=== PATIENT | female | born 1940 | race Two or more races ===

== ENCOUNTER 2022-06-02 20:27 | Inpatient (IN) | payer MEDICARE, BC ==
[~2022-06-02] VITALS: Ht 165.1 cm; Wt 103.9 kg
--- NOTE | 2022-06-02 21:30 | NUR ---
ICU/CARTON FORMING MACHINE OPERATOR GOT REPORT FROM [facility] NURSE CAS.
--- NOTE | 2022-06-02 21:35 | NUR ---
ICU/INSTRUMENTATION TECH PT GOT BOLUS OF AMIO. THEN PT WAS STARTED ON AMIO 1MG FOR THE NEXT 6 HRS. AFTER PT TO HAVE 0.5MG FOR 18HRS. CHARGE NURSE MADE AWARE THAT PT IS COMING WITH AMIO DRIP.
[2022-06-02 22:45] VITALS: BP 159/82
[2022-06-02 23:00] VITALS: BP 150/87
--- NOTE | 2022-06-02 23:00 | NUR ---
ICU/DAIRY CATTLE FARMER PT CAME VIA [facility] AMBULANCE, PT TRANSFER TO BED PLACED ON MONITOR. PHOTOS TAKEN OF WOUNDS. CALL LIGHT WITHIN REACH. CALLED MD TO GET ORDERS.
[2022-06-02 23:15] VITALS: BP 153/79
[2022-06-02 23:30] VITALS: BP 148/87
[2022-06-02 23:45] VITALS: BP 150/75
[2022-06-03] VITALS (71 sets, daily range): BP systolic 129–164; BP diastolic 40–101
[2022-06-03] MEDS ORDERED: ENALAPRILAT DIHYD. (2.5MG/2ML) 1.25 MG/ML VIAL IV PRN
[2022-06-03] MEDS ORDERED: hydrALAZINE HCL IV 20 MG VIAL IV PRN ×2
--- NOTE | 2022-06-03 00:10 | NUR ---
ICU/WOOD ROOM HAND CALLED MD AND GOT ORDERS FOR ADMISSION.
[2022-06-03] MEDS ORDERED: AMIODARONE 150 MG/3 ML VIAL IV ONE (00:29)
[2022-06-03] MEDS: AMIODARONE 450 MG in IV D5W 241 ML IV PRN ×2 (00:34→11:41)
[2022-06-03] MEDS: HYDROCODONE/APAP 5/325MG TABLET PO PRN ×3 (02:40→22:31)
--- NOTE | 2022-06-03 02:45 | NUR ---
ICU/TANK STAVE ASSEMBLER PT COMPLAINED OF PAIN 10/10 TO BACK AND LEGS, MD GAVE ORDER FOR NORCO 5/325MG 1 TAB PO EVERY 6 HRS. THE 1 TAB OF NORCO WAS GIVEN AT THIS TIME. CALL LIGHT WITHIN REACH.
[2022-06-03] MEDS ORDERED: APIX5TAB PO (02:48)
[2022-06-03] MEDS ORDERED: ATEN25TA PO (02:50)
[2022-06-03] MEDS ORDERED: AMIO200T5 PO (02:51)
[2022-06-03] MEDS ORDERED: FAMO-131 PO (02:52)
[2022-06-03] MEDS ORDERED: OXYC-133 PO (02:53)
[2022-06-03] MEDS ORDERED: DULO30CA2 PO (02:54)
[2022-06-03] MEDS ORDERED: PRED20TA PO (02:55)
[2022-06-03] MEDS ORDERED: METO2.5T2 PO (02:57)
[2022-06-03] MEDS ORDERED: METO1TAB11 PO (02:59)
[2022-06-03] MEDS ORDERED: METO2.5T7 PO (03:02)
--- NOTE | 2022-06-03 03:05 | NUR ---
ICU/CARD FOLDER MD CONNER CALLED TO ASK IF HOME MEDS WERE RECIEVED, PT DOESN'T HAVE A LIST PT REMEMBERED SOME MEDS. HOWEVER MD DID GIVE VERBAL ORDER FOR SOME MEDS UNTIL PT CAME GET COMPLETE LIST OF MEDS.
--- NOTE | 2022-06-03 03:26 | NUR ---
ICU/INSTRUCTOR WEAVING ATTACHI CALLED TO GIVE MORE VERBAL ORDERS. PLACED ORDERS IN COMPUTER.
[2022-06-03 04:25] LABS: BASOPHILS % (AUTO) 0.3 % (0.0-2.0); EOSINOPHILS % (AUTO) 0.4 % (0.0-6.0); HEMATOCRIT 40 % (33-45); HEMOGLOBIN 12.8 g/dL (11.5-14.8); LYMPHOCYTES # (AUTO) 2.4 K/uL (0.8-4.8); LYMPHOCYTES % (AUTO) 22.8 % (20.0-44.0); MEAN CORPUSCULAR HGB CONC 32 g/dl (31.0-36.0); MEAN CORPUSCULAR VOLUME 96 fL (82-100); MONOCYTES # (AUTO) 0.8 K/uL (0.1-1.30); MONOCYTES % (AUTO) 7.2 % (2.0-12.0); NEUTROPHILS # (AUTO) 7.3 K/uL (1.8-8.9); NEUTROPHILS % (AUTO) 69.3 % (43.0-81.0); PLATELET COUNT (AUTO) 290 K/uL (150-450); RED BLOOD CELL COUNT(AUTO) 4.17 MIL/uL (4.0-5.2); WHITE BLOOD COUNT (AUTO) 10.5 K/uL (4.3-11.0)
[2022-06-03 04:40] LABS: CARBON DIOXIDE 33 mmol/L (21-32); CHLORIDE 97 mmol/L (98-107); CREATININE 1.3 mg/dL (0.6-1.3); GLUCOSE 106 mg/dL (74-106); PHOSPHORUS 4.8 mg/dL (2.5-4.9); POTASSIUM 3.5 mmol/L (3.5-5.1); SODIUM SERUM 137 mmol/L (136-145); UREA NITROGEN, BLOOD 23 mg/dL (7-18)
[2022-06-03 04:51] LABS: THYROID STIMULATING HORMONE 2.807 uIU/mL (0.358-3.74)
--- NOTE | 2022-06-03 05:00 | NUR ---
ICU/PRACTICING DERMATOLOGIST EKG WAS DONE AND PLACED IN THE CHART.
--- NOTE | 2022-06-03 05:30 | NUR ---
ICU/CROP DUSTER AM LABS WERE DONE
--- NOTE | 2022-06-03 06:00 | NUR ---
ICU/PENCILLER POSITIVE TROP 105, CHARGE NURSE TOOK CRITICAL LAB. PT CAME FROM [place] WITH POSITIVE TROP.
[2022-06-03] MEDS: LEVOTHYROXINE SODIUM 50 MCG TABLET PO SCH (06:07)
--- NOTE | 2022-06-03 07:00 | NUR ---
RN NOTES RECEIVED PT ON BED, A/Ox4, ON RA , O2 SAT WNL, ON TELE A.FIB, HR IN 100'S, ON AMIO DRIP AT 0.5 MG/MIN, IV SITE CDI, NO DISTRESS NOTED, SR UP x3, CALL LIGHT WITHIN EASY REACH, BED LOCKED AND IN LOWEST POSITION, CONTINUE TO MONITOR
[2022-06-03] MEDS: APIXABAN 5 MG TABLET PO SCH ×2 (08:14→21:06)
[2022-06-03] MEDS: DULOXETINE HCL 30 MG CAPSULE.DR PO SCH (08:14)
[2022-06-03] MEDS: FAMOTIDINE (20 MG) 20 MG TABLET PO SCH ×2 (08:14→21:05)
[2022-06-03] MEDS ORDERED: ATENOLOL 25 MG TABLET PO SCH (09:00)
[2022-06-03] MEDS ORDERED: FUROSEMIDE 20 MG TABLET PO SCH (09:00)
[2022-06-03] MEDS ORDERED: predniSONE 5 MG TABLET PO SCH (09:00)
[2022-06-03] MEDS: VALSARTAN 80 MG TABLET PO SCH (09:01)
--- NOTE | 2022-06-03 09:03 | NUR ---
WOUND CARE CONSULT: PT HAVING PROCEDURE AT THIS TIME. DR CUEVAS CALLED FOR DPM CONSULT. PT HAS BILATERAL FOOT WOUNDS, PRESENT ON ADMISSION. ADMISSION PHOTO INDICATES REDNESS/SCAB TO RT BUTTOCK. WILL SEE PT AT LATER TIME FOR FULL ASSESSMENT. DISCUSSED SKIN PROTECTION WITH NURSING STAFF. MD IN AGREEMENT WITH PLAN OF CARE.
--- NOTE | 2022-06-03 09:14 | NUR ---
WOUND CARE: PT SEEN FOR SKIN ASSESSMENT OF SACRAL AREA AND RT BUTTOCK. GLUTEAL CREASE HAS MOISTURE WITH REDNESS AND RT BUTTOCK HAS DRY SCAB WITHOUT ERYTHEMA, TENDERNESS OR DRAINAGE, PRESENT ON ADMISSION. PT USING PURE WICK SYSTEM FOR URINARY INCONTINENCE. ALL SKIN PROTECTION MEASURES IN PLACE. MD IN AGREEMENT WITH PLAN OF CARE.
[2022-06-03] MEDS ORDERED: Z GUARD REMEDY 4 OZ OINT TP PRN (09:30)
[2022-06-03 10:10] LABS: BILIRUBIN,DIRECT 0.2 mg/dL (0.0-0.2); BILIRUBIN,TOTAL 0.6 mg/dL (0.2-1.0); TOTAL PROTEIN, SERUM 5.8 g/dL (6.4-8.2)
--- NOTE | 2022-06-03 10:47 | NUR ---
APS REPORT #[id number] completed for possible self-neglect. Pt. reported to that she is wheelchair bound, and lives at home with her who is blind. Pt. reportedly has Home health services and automobile club information clerk but no caregiver.
[2022-06-03] MEDS: Z GUARD REMEDY 4 OZ OINT TP SCH (11:40)
[2022-06-03] MEDS ORDERED: MAGNESIUM HYDROXIDE 30 ML UDC PO PRN (12:00)
[2022-06-03] MEDS ORDERED: ACETAMINOPHEN 325 MG TABLET PO PRN (12:00)
[2022-06-03] MEDS: ONDANSETRON HCL/PF 4 MG/2 ML VIAL IV PRN (13:07)
--- NOTE | 2022-06-03 14:00 | NUR ---
RN NOTES PT ON AMIO AT 0.5 MG/MN, A.FIB ON TELE , CONTINUE TO MONITOR
[2022-06-03] MEDS: DOCUSATE SODIUM 100 MG CAPSULE PO SCH (16:32)
--- NOTE | 2022-06-03 18:15 | NUR ---
RN NOTES PT REMAINS ON AMIO DRIP AT 0.5 MG/MIN THIS TIME, A.FIB , NO SIGNIFICANT CHANGES NOTED, ON THIS SHIFT, WILL ENDORSE TO BUSINESS JOB TITLES NURSE FOR CONTINUITY OF CARE
[2022-06-03] MEDS ORDERED: LOSARTAN POTASSIUM 25 MG TABLET PO SCH (21:00)
[2022-06-04] VITALS (32 sets, daily range): BP systolic 91–159; BP diastolic 49–86
[2022-06-04] MEDS: AMIODARONE 450 MG in IV D5W 241 ML IV PRN (02:40)
[2022-06-04 03:52] LABS: BASOPHILS % (AUTO) 0.3 % (0.0-2.0); EOSINOPHILS % (AUTO) 0.6 % (0.0-6.0); HEMATOCRIT 39 % (33-45); HEMOGLOBIN 12.5 g/dL (11.5-14.8); LYMPHOCYTES % (AUTO) 24.8 % (20.0-44.0); MEAN CORPUSCULAR HGB CONC 33 g/dl (31.0-36.0); MEAN CORPUSCULAR VOLUME 95 fL (82-100); MONOCYTES # (AUTO) 0.5 K/uL (0.1-1.30); MONOCYTES % (AUTO) 6.1 % (2.0-12.0); NEUTROPHILS # (AUTO) 5.6 K/uL (1.8-8.9); NEUTROPHILS % (AUTO) 68.2 % (43.0-81.0); PLATELET COUNT (AUTO) 252 K/uL (150-450); RED BLOOD CELL COUNT(AUTO) 4.08 MIL/uL (4.0-5.2); WHITE BLOOD COUNT (AUTO) 8.1 K/uL (4.3-11.0)
[2022-06-04 04:14] LABS: ALANINE AMINOTRANSFERASE 19 U/L (12-78); ALBUMIN 2.7 g/dL (3.4-5.0); ALKALINE PHOSPHATASE 78 U/L (46-116); ASPARTATE AMINOTRANSFERASE 14 U/L (15-37); BILIRUBIN,TOTAL 0.9 mg/dL (0.2-1.0); CALCIUM, SERUM 8.5 mg/dL (8.5-10.1); CARBON DIOXIDE 36 mmol/L (21-32); CHLORIDE 97 mmol/L (98-107); CREATININE 1.2 mg/dL (0.6-1.3); GLUCOSE 99 mg/dL (74-106); PHOSPHORUS 4.6 mg/dL (2.5-4.9); SODIUM SERUM 136 mmol/L (136-145); TOTAL PROTEIN, SERUM 5.4 g/dL (6.4-8.2); UREA NITROGEN, BLOOD 16 mg/dL (7-18)
[2022-06-04] MEDS: HYDROCODONE/APAP 5/325MG TABLET PO PRN ×4 (04:33→22:24)
[2022-06-04] MEDS ORDERED: DEXAMETHASONE SOD PHOSPHATE 10 MG/ML VIAL ONE (06:53)
--- NOTE | 2022-06-04 07:00 | NUR ---
RN NOTES RECEIVED PT ON BED, A/Ox4, ON RA , O2 SAT WNL, ON TELE A.FIB, HR IN 70'S , ON AMIO DRIP AT 0.5 MG/MIN, IV SITE CDI, NO DISTRESS NOTED, SR UP x3, CALL LIGHT WITHIN EASY REACH, BED LOCKED AND IN LOWEST POSITION, CONTINUE TO MONITOR
[2022-06-04] MEDS: VALSARTAN 80 MG TABLET PO SCH (09:00)
--- NOTE | 2022-06-04 09:00 | NUR ---
RN NOTES CARDIOVERSION DONE AT THE BEDSIDE BY DR BRYANT , PT TOLERATED WELL, CONTINUE TO MONITOR
[2022-06-04] MEDS: APIXABAN 5 MG TABLET PO SCH ×2 (09:08→22:07)
[2022-06-04] MEDS: predniSONE 20 MG TABLET PO SCH (09:08)
[2022-06-04] MEDS: DOCUSATE SODIUM 100 MG CAPSULE PO SCH ×2 (09:08→16:36)
[2022-06-04] MEDS: FAMOTIDINE (20 MG) 20 MG TABLET PO SCH ×2 (09:09→21:57)
[2022-06-04] MEDS: DULOXETINE HCL 30 MG CAPSULE.DR PO SCH (09:09)
[2022-06-04] MEDS: LEVOTHYROXINE SODIUM 50 MCG TABLET PO SCH (09:18)
[2022-06-04] MEDS: Z GUARD REMEDY 4 OZ OINT TP SCH (09:19)
[2022-06-04] MEDS: ONDANSETRON HCL/PF 4 MG/2 ML VIAL IV PRN ×2 (09:33→13:28)
[2022-06-04] MEDS ORDERED: LOSA100T31 PO (10:11)
[2022-06-04] MEDS ORDERED: LEVO75TA7 PO (10:11)
[2022-06-04] MEDS ORDERED: PRAM0.258 PO (10:11)
[2022-06-04] MEDS ORDERED: NYST5ORA PO (10:11)
[2022-06-04] MEDS ORDERED: MANUKA HONEY TP (10:11)
[2022-06-04] MEDS ORDERED: METO100T14 PO (10:11)
[2022-06-04] MEDS ORDERED: CALC1TAB3 PO (10:11)
[2022-06-04] MEDS ORDERED: BIOT10006 PO (10:11)
[2022-06-04] MEDS ORDERED: MAGN400T26 PO (10:11)
[2022-06-04] MEDS ORDERED: CRAN250C PO (10:11)
[2022-06-04] MEDS ORDERED: CARB15DR EACHEYE (10:11)
[2022-06-04] MEDS ORDERED: DOXY100T2 PO (10:11)
[2022-06-04] MEDS ORDERED: POTA20TA83 PO (10:11)
[2022-06-04] MEDS: SOTALOL HCL 80 MG TABLET PO SCH ×2 (10:52→21:53)
--- NOTE | 2022-06-04 11:00 | NUR ---
RN NOTES PT TRANSFERRED TO TELE BED VIA ACLS PROTOCAL IN STABLE CONDITION, WITH ALL HER BELONGINGS ,SR ON TELE MONITOR . REPORT GIVEN TO LINDA GORDON FOR CONTINUITY OF CARE
--- NOTE | 2022-06-04 11:36 | NUR ---
telesales consultant note received patient from icu, alert oriented ,on ra ,no sob noted at this time pure week in place , on tele monitor sr hr 66 , consent for cta signed , called to dr david that procedure will be done tomorrow , all needs attended, will cont to monitor
--- NOTE | 2022-06-04 12:48 | NUR ---
telecommunication lines repairer note new hl on rt ac inserted with good blood return
--- NOTE | 2022-06-04 13:33 | NUR ---
telemarketing fundraiser note feels nausea Zofran 4 mg ivp given as ordered
[2022-06-04] MEDS ORDERED: IOHEXOL-350 100 ML VIAL IV ONE (13:55)
[2022-06-04] MEDS ORDERED: CT SWABBABLE VALVE TRANS SET 1 EA INFUS.SET MC ONE (13:55)
[2022-06-04] MEDS ORDERED: IV NS 0.9% 250 ML IV ONE (13:55)
--- NOTE | 2022-06-04 14:00 | NUR ---
television service engineer note taken to cta
--- NOTE | 2022-06-04 14:23 | NUR ---
RN NOTES CTCA PROCEDURE WELL TOLERATED BY THE PT. PT IS AAOX4, NOT IN RESPIRATORY DISTRESS, V/S STABLE, KEPT RESTED AND COMFORTABLE. REPORT GIVEN TO EVAN MCKEON FOR BERTHA.
[2022-06-04] MEDS ORDERED: NITROGLYCERIN 0.4 MG/TAB BOTTLE SL ONE (14:30)
[2022-06-04] MEDS ORDERED: METOPROLOL TARTRATE INJ 5 MG/5 ML AMPUL IVP PRN (14:30)
[2022-06-04] MEDS: PROSOURCE / PROSTAT (PYXIS) 30 ML UDC GT SCH (16:36)
--- NOTE | 2022-06-04 17:33 | NUR ---
clerk telegraph service note Anthony po given as ordered for back pain bp 139/73 saturation 98% also reported us arterial duplex studu to dr quinones [facility] legs
--- NOTE | 2022-06-04 18:22 | NUR ---
telecommunication operator note per dr varela placed order for dr hughes consult
--- NOTE | 2022-06-04 18:41 | NUR ---
OIL HEATER INSTALLER NOTE PATIENT IN BED , ALL NEEDS ATTENDED, ABLE TO EAT DINNER SELF WITH PUREE WICK WITH YELLOW COLOR URINE NOTED, ON TELE MONITOR SR 60 SB 58 , NO SOB NOTED ,ON RA . RT AC AND RT FA HL INTACT AND FLUSHED WELL , CALL LIGHT WITHIN REACH , SAFETY MEASURE IMPLEMENTED WILL CONT TO MONITOR
--- NOTE | 2022-06-04 19:30 | NUR ---
RN NOTE RECEIVED PT IN BED, ALERT, AWAKE, ORIENTED X4, VERBALLY RESPONSIVE. PT ON ROOM AIR, WELL TOLERATED. RESPIRATION EVEN AND UNLABORED, NO ACUTE RESP DISTRESS NOTED. PT DENIES PAIN OR DISCOMFORT AT THIS TIME. PT ATTACHED TO EXTERNAL PROJECT DEVELOPMENT ENGINEER READING SR. IV SITE CLEAN, DRY AND PATENT, ON SL. SAFETY PRECAUTION IMPLEMENTED. WILL CONT POC
[2022-06-05] VITALS: BP 132/70
[2022-06-05] MEDS: HYDROCODONE/APAP 5/325MG TABLET PO PRN ×5 (02:45→21:45)
[2022-06-05 04:00] VITALS: BP 142/73
[2022-06-05 06:52] LABS: BASOPHILS % (AUTO) 0.1 % (0.0-2.0); HEMATOCRIT 35 % (33-45); HEMOGLOBIN 11.9 g/dL (11.5-14.8); LYMPHOCYTES # (AUTO) 0.4 K/uL (0.8-4.8); LYMPHOCYTES % (AUTO) 5.6 % (20.0-44.0); MEAN CORPUSCULAR HGB CONC 34 g/dl (31.0-36.0); MEAN CORPUSCULAR VOLUME 93 fL (82-100); MONOCYTES # (AUTO) 0.3 K/uL (0.1-1.30); MONOCYTES % (AUTO) 4.4 % (2.0-12.0); NEUTROPHILS # (AUTO) 6.9 K/uL (1.8-8.9); NEUTROPHILS % (AUTO) 89.9 % (43.0-81.0); PLATELET COUNT (AUTO) 218 K/uL (150-450); RED BLOOD CELL COUNT(AUTO) 3.77 MIL/uL (4.0-5.2); WHITE BLOOD COUNT (AUTO) 7.7 K/uL (4.3-11.0)
--- NOTE | 2022-06-05 07:00 | NUR ---
RN NOTE RECEIVED PATIENT IN BED RESTING ALERT ORIENTED X4,VERBALLY RESPONSIVE, ON ROOM AIR O2:96% IV SITE IS ON RIGHT FOREARM,AND RIGHT AC INTACT PATENT,INCONTINENT BLADDER, PURE-WICK IN PLACE, SAFETY MEASURE IMPLEMENT BED IN LOW POSITION AND LOCKED,HEAD OF THE BED ELEVATED,CALL LIGHT WITHIN REACH CONTINUE TO MONITOR
--- NOTE | 2022-06-05 07:00 | NUR ---
RN NOTE PT REMAINS IN STABLE CONDITION. ALL NEEDS ATTENDED. NO SIGNIFICANT CHANGES NOTED. WILL ENDORSE TO AM SHIFT. KEPT PT CLEAN AND DRY AT ALL TIMES. WILL ENDORSE TO AM SHIFT FOR BERTHA
[2022-06-05] MEDS: LEVOTHYROXINE SODIUM 50 MCG TABLET PO SCH (07:27)
[2022-06-05 08:00] VITALS: BP 145/86
[2022-06-05 08:17] LABS: CARBON DIOXIDE 28 mmol/L (21-32); CHLORIDE 97 mmol/L (98-107); GLUCOSE 108 mg/dL (74-106); POTASSIUM 3.8 mmol/L (3.5-5.1); SODIUM SERUM 134 mmol/L (136-145)
[2022-06-05 08:18] LABS: CALCIUM, SERUM 8.5 mg/dL (8.5-10.1); CREATININE 1.1 mg/dL (0.6-1.3); MAGNESIUM 2.2 mg/dL (1.8-2.4); PHOSPHORUS 4.8 mg/dL (2.5-4.9); UREA NITROGEN, BLOOD 20 mg/dL (7-18)
[2022-06-05] MEDS: DOCUSATE SODIUM 100 MG CAPSULE PO SCH ×2 (08:38→16:19)
[2022-06-05] MEDS: DULOXETINE HCL 30 MG CAPSULE.DR PO SCH (08:38)
[2022-06-05] MEDS: VALSARTAN 80 MG TABLET PO SCH (08:39)
[2022-06-05] MEDS: FAMOTIDINE (20 MG) 20 MG TABLET PO SCH ×2 (08:40→21:45)
[2022-06-05] MEDS: predniSONE 20 MG TABLET PO SCH (08:40)
[2022-06-05] MEDS: SOTALOL HCL 80 MG TABLET PO SCH ×2 (08:40→21:00)
[2022-06-05] MEDS: APIXABAN 5 MG TABLET PO SCH ×2 (08:42→21:44)
[2022-06-05] MEDS: Z GUARD REMEDY 4 OZ OINT TP SCH (08:46)
[2022-06-05] MEDS: PROSOURCE / PROSTAT (PYXIS) 30 ML UDC GT SCH ×2 (08:49→16:19)
[2022-06-05 12:00] VITALS: BP 147/64
[2022-06-05 16:00] VITALS: BP 133/73
--- NOTE | 2022-06-05 18:57 | NUR ---
RN NOTE PATIENT REMAINS ALERT ORIENTED X4 VERBALLY RESPONSIVE ON ROOM AIR NO SOB NOT ACUTE DISTRESS NOTED ALL DUE MEDS GIVEN MD ORDERED,KEPT CLEAN AND DRY ALL THE TIME,KEPT COMFORTABLE,KEPT HEAD OF THE ELEVATED ALL THE TIME,ENDORSE NEXT COMING SHIFT FOR CONTINUATION OF CARE.
--- NOTE | 2022-06-05 19:30 | NUR ---
RN NOTE RECEIVED PT IN BED, ALERT, AWAKE, ORIENTED X4, VERBALLY RESPONSIVE. PT ON ROOM AIR, WELL TOLERATED. RESPIRATION EVEN AND UNLABORED, NO ACUTE RESP DISTRESS NOTED. PT DENIES PAIN OR DISCOMFORT AT THIS TIME. PT ATTACHED TO EXTERNAL CORRECTIONAL FACILITY PSYCHIATRIST READING SB HR58. IV SITE ON RFA AND RAC CLEAN, DRY AND PATENT, FLUSHES WELL, ON SL. SAFETY PRECAUTION IMPLEMENTED. WILL CONT POC
[2022-06-05 20:00] VITALS: BP 131/78
[2022-06-05] MEDS: GABAPENTIN 300 MG CAPSULE PO SCH (21:45)
[2022-06-06] VITALS: BP 132/81
[2022-06-06 04:00] VITALS: BP 133/72
[2022-06-06] MEDS: HYDROCODONE/APAP 5/325MG TABLET PO PRN ×4 (05:09→21:53)
[2022-06-06 05:50] LABS: BASOPHILS % (AUTO) 0.1 % (0.0-2.0); EOSINOPHILS % (AUTO) 0.1 % (0.0-6.0); HEMATOCRIT 35 % (33-45); HEMOGLOBIN 11.7 g/dL (11.5-14.8); LYMPHOCYTES # (AUTO) 1.2 K/uL (0.8-4.8); LYMPHOCYTES % (AUTO) 14.7 % (20.0-44.0); MEAN CORPUSCULAR HGB CONC 34 g/dl (31.0-36.0); MEAN CORPUSCULAR VOLUME 94 fL (82-100); MONOCYTES # (AUTO) 0.5 K/uL (0.1-1.30); MONOCYTES % (AUTO) 6.5 % (2.0-12.0); NEUTROPHILS # (AUTO) 6.5 K/uL (1.8-8.9); NEUTROPHILS % (AUTO) 78.6 % (43.0-81.0); PLATELET COUNT (AUTO) 229 K/uL (150-450); RED BLOOD CELL COUNT(AUTO) 3.72 MIL/uL (4.0-5.2); WHITE BLOOD COUNT (AUTO) 8.2 K/uL (4.3-11.0)
[2022-06-06] MEDS: LEVOTHYROXINE SODIUM 50 MCG TABLET PO SCH (06:10)
[2022-06-06 06:24] LABS: CALCIUM, SERUM 8.6 mg/dL (8.5-10.1); CARBON DIOXIDE 33 mmol/L (21-32); CHLORIDE 97 mmol/L (98-107); CREATININE 1.3 mg/dL (0.6-1.3); GLUCOSE 96 mg/dL (74-106); MAGNESIUM 2.3 mg/dL (1.8-2.4); PHOSPHORUS 4.1 mg/dL (2.5-4.9); POTASSIUM 3.2 mmol/L (3.5-5.1); SODIUM SERUM 133 mmol/L (136-145); UREA NITROGEN, BLOOD 27 mg/dL (7-18)
--- NOTE | 2022-06-06 06:43 | NUR ---
RN NOTE PT REMAINS IN STABLE CONDITION. VSS. REMAINS ON ROOM AIR, WELL SEAN. EXTERNAL FIELD ARTILLERY BASIC READS SB-SR THROUGHOUT THE SHIFT. ALL NEEDS ATTENDED. NO SIGNIFICANT CHANGES NOTED. KEPT PT CLEAN AND DRY AT ALL TIMES. WILL ENDORSE TO AM SHIFT FOR BERTHA
--- NOTE | 2022-06-06 07:30 | NUR ---
DBAS AM NOTE RECEIVED PT IN BED, ALERT, AWAKE, ORIENTED X4, ABLE TO EXPRESS NEEDS, ON ROOM AIR, O2 SAT 97%. NO SOB, RESPIRATION EVEN AND UNLABORED,SB HR 48 - 51 ON MONITOR. PT DENIES PAIN OR DISCOMFORT AT THIS TIME. IV SITE ON RFA AND RAC BOTH FLUSHES WELL AND BOTH SITES CLEAR. SEE NURSING FLOWSHEET FOR SKIN ISSUES. INDEPENDENT OF BED MOBILITY. SAFETY PRECAUTION IMPLEMENTED. BED LOW LOCKED. SAFETY MEASURES IN PLACE. POC DISCUSSED, VERBALIZED UNDERSTANDING. WILL CONT TP MONITOR.
[2022-06-06 08:00] VITALS: BP 116/65
[2022-06-06] MEDS: PROSOURCE / PROSTAT (PYXIS) 30 ML UDC GT SCH ×2 (08:32→16:05)
[2022-06-06] MEDS: FAMOTIDINE (20 MG) 20 MG TABLET PO SCH ×2 (08:35→21:54)
[2022-06-06] MEDS: GABAPENTIN 300 MG CAPSULE PO SCH ×3 (08:35→16:05)
[2022-06-06] MEDS: DULOXETINE HCL 30 MG CAPSULE.DR PO SCH (08:35)
[2022-06-06] MEDS: predniSONE 20 MG TABLET PO SCH (08:35)
[2022-06-06] MEDS: DOCUSATE SODIUM 100 MG CAPSULE PO SCH ×2 (08:35→16:05)
[2022-06-06] MEDS: SOTALOL HCL 80 MG TABLET PO SCH ×2 (08:36→21:00)
[2022-06-06] MEDS: VALSARTAN 80 MG TABLET PO SCH (08:37)
[2022-06-06] MEDS: APIXABAN 5 MG TABLET PO SCH ×2 (08:38→21:56)
[2022-06-06] MEDS: Z GUARD REMEDY 4 OZ OINT TP SCH (08:51)
--- NOTE | 2022-06-06 09:30 | NUR ---
RN NOTES DUE MEDS GIVEN
[2022-06-06] MEDS ORDERED: POTASSIUM CHLORIDE 20 MEQ TAB.PRT.SR PO SCH (10:00)
[2022-06-06 12:00] VITALS: BP 123/68
--- NOTE | 2022-06-06 13:12 | NUR ---
RN NOTES REPORT GIVEN TO XAVIER RIVERA FOR BERTHA
--- NOTE | 2022-06-06 13:20 | NUR ---
RECEIVED REPORT FROM MARIAH GORDON FOR BERTHA.
[2022-06-06] MEDS ORDERED: GABA300C PO (14:48)
[2022-06-06] MEDS ORDERED: APIX5TAB PO (14:48)
[2022-06-06] MEDS ORDERED: Z Guard Remedy TP ×2 (14:48)
[2022-06-06] MEDS ORDERED: DOCU100C36 PO (14:48)
[2022-06-06] MEDS ORDERED: LEVO50TA PO (14:48)
[2022-06-06] MEDS ORDERED: MAGN400O6 PO (14:48)
[2022-06-06] MEDS ORDERED: ACET325T53 PO (14:48)
[2022-06-06] MEDS ORDERED: DULO30CA2 PO (14:48)
[2022-06-06] MEDS ORDERED: Prosource GT (14:48)
[2022-06-06] MEDS ORDERED: PRED20TA PO (14:48)
[2022-06-06] MEDS ORDERED: FAMO20TA80 PO (14:48)
[2022-06-06] MEDS ORDERED: Hydrocodone/Apap 5/325MG PO (14:48)
[2022-06-06] MEDS ORDERED: ONDA4VIA23 PO (14:48)
[2022-06-06] MEDS ORDERED: SOTA80TA6 PO (14:48)
[2022-06-06] MEDS ORDERED: VALS80TA31 PO (14:48)
[2022-06-06 16:00] VITALS: BP 131/68
--- NOTE | 2022-06-06 17:56 | NUR ---
PATIENT REFUSED TO PUT OPTIFOAM ON BILATERAL HEELS, DRY DRESSING AND KERLIX WAS PLACED.
--- NOTE | 2022-06-06 18:07 | NUR ---
CLINICAL OFFICE TECHNICIAN CLOSING NOTE RECEIVED PT IN BED, ALERT, AWAKE, ORIENTED X4, ABLE TO EXPRESS NEEDS, ON ROOM AIR, O2 SAT 97%. NO SOB, RESPIRATION EVEN AND UNLABORED,SB HR 56-57, PT DENIES PAIN OR DISCOMFORT AT THIS TIME. NO C/O OF DIZZINESS OR CHEST PAIN. IV SITE ON RFA AND RAC BOTH PATENT AND INTACT AND FLUSHES WELL. INDEPENDENT OF BED MOBILITY. PATIENT NOTED WITH PUREWICK INTACT, WITH 500ML CLEAR YELLOW URINE OUTPUT. SAFETY PRECAUTION IMPLEMENTED. BED LOW LOCKED. SAFETY MEASURES IN PLACE. CALL LIGHT WITHIN REACH. WILL ENDORSE TO NIGHT NURSE FOR BERTHA.
--- NOTE | 2022-06-06 19:35 | NUR ---
HONEST JOHN ROCKET CREW MEMBER OPENING NOTE RECEIVED PATIENT IN BED: AWAKE, ALERT AND ORIENTED X 4. VERBALLY RESPONSIVE. ON ROOM AIR; TOLERATING WELL. BREATHING EVEN AND NONLABORED. DENIES ANY PAIN OR DISCOMFORT AT THIS TIME. ON EXTERNAL CARDIAC MONITORING WITH READING OF SB HR-56 BPM. WITH IV ACCESS ON RFA 20g AND RAC 20g; BOTH PATENT, INTACT AND SALINE LOCKED. ABLE TO MAKE NEEDS KNOWN. SAFETY PRECAUTIONS IMPLEMENTED: CALL LIGHT AND TABLE WITHIN REACH, SIDE RAILS UP X 2, BED IN LOWEST LOCKED POSITION. WILL CONTINUE PLAN OF CARE.
[2022-06-06 20:00] VITALS: BP 139/71
--- NOTE | 2022-06-06 21:59 | NUR ---
RN Note Sotalol HCl 80 mg held; patient's hr-49 bpm. Will continue to monitor.
[2022-06-07] VITALS: BP 133/67
[2022-06-07] MEDS: HYDROCODONE/APAP 5/325MG TABLET PO PRN ×3 (02:23→14:30)
[2022-06-07 04:00] VITALS: BP 135/71
[2022-06-07] MEDS: LEVOTHYROXINE SODIUM 50 MCG TABLET PO SCH (07:10)
--- NOTE | 2022-06-07 07:30 | NUR ---
INFANTRY UNIT LEADER AM NOTE RECEIVED PT IN BED, ALERT, AWAKE, ORIENTED X4, ABLE TO EXPRESS NEEDS, ON ROOM AIR, O2 SAT 99%. NO SOB, RESPIRATION EVEN AND UNLABORED,SB HR 58 ON MONITOR. PT DENIES PAIN OR DISCOMFORT AT THIS TIME. IV SITE ON RFA AND RAC BOTH FLUSHES WELL AND BOTH SITES CLEAR. SEE NURSING FLOWSHEET FOR SKIN ISSUES. INDEPENDENT OF BED MOBILITY. SAFETY PRECAUTION IMPLEMENTED. BED LOW LOCKED. SAFETY MEASURES IN PLACE. POC DISCUSSED, VERBALIZED UNDERSTANDING. WILL CONT TP MONITOR.
[2022-06-07 08:00] VITALS: BP 160/75
[2022-06-07] MEDS: PROSOURCE / PROSTAT (PYXIS) 30 ML UDC GT SCH (08:44)
[2022-06-07] MEDS: predniSONE 20 MG TABLET PO SCH (08:44)
[2022-06-07] MEDS: GABAPENTIN 300 MG CAPSULE PO SCH ×2 (08:46→12:09)
[2022-06-07] MEDS: SOTALOL HCL 80 MG TABLET PO SCH (08:46)
[2022-06-07] MEDS: VALSARTAN 80 MG TABLET PO SCH (08:46)
[2022-06-07] MEDS: DOCUSATE SODIUM 100 MG CAPSULE PO SCH (08:46)
[2022-06-07] MEDS: DULOXETINE HCL 30 MG CAPSULE.DR PO SCH (08:47)
[2022-06-07] MEDS: APIXABAN 5 MG TABLET PO SCH (08:47)
[2022-06-07] MEDS: FAMOTIDINE (20 MG) 20 MG TABLET PO SCH (08:47)
[2022-06-07] MEDS: Z GUARD REMEDY 4 OZ OINT TP SCH (08:48)
--- NOTE | 2022-06-07 09:30 | NUR ---
RN NOTES DUE MEDS GIVEN
[2022-06-07 12:00] VITALS: BP 131/56
[2022-06-07 13:00] VITALS: BP 160/75
--- NOTE | 2022-06-07 14:15 | NUR ---
RN NOTES REPORT GIVEN TO [facility] STAFF AMBULANCE STEM FRAZER AT 1500
--- NOTE | 2022-06-07 15:40 | NUR ---
RN NOTES PATIENT DISCHARGED TO [facility] PER MD IN STABLE CONDITION. PROVIDED DC INSTRUCTIONS, HEALTH TEACHINGS AND MED RECON LIST. PATIENT TO FOLLOW UP WITH PCP IN 1 WEEK OR PER FACILITY PROTOCOL AND WILL MAKE OWN APPOINTMENT. IV ACCESS TO RT AC AND RT FOREARM REMOVED, BOTH CATHETER TIP COMPLETE, APPLIED PRESSURE AND DRESSING TO SITE. NO BLEEDING. BELONGINGS CHECKED AND RETURNED. ALL PAPERWORKS SIGNED. WOUND DRESSINGS INTACT. PATIENT REFUSED PHOTOS OF SKIN ISSUES DUE TO NEUROPATHY COMPLAINS. PICKED UP BY 3 AMBULANCE CREW PERSONNEL TO TRANSPORT TO FACILITY. REPORT GIVEN GLORY AT FACILITY EARLIER.
== END 2022-06-07 15:40 | DRG 280 ==
LOC: ICU 22:29 → TELE1 06-04 10:59
PROVIDERS: ADMIT Internal Medicine; ATTEND Internal Medicine
PROC: 5A2204Z Restoration of Cardiac Rhythm, Single (ICD-10-PCS; principal; 2022-06-04)
DX: I48.91 Unspecified atrial fibrillation (principal); I21.4 Non-ST elevation (NSTEMI) myocardial infarction; I50.33 Acute on chronic diastolic (congestive) heart failure; N17.0 Acute kidney failure with tubular necrosis; J98.11 Atelectasis; L03.115 Cellulitis of right lower limb; L03.116 Cellulitis of left lower limb; I11.0 Hypertensive heart disease with heart failure; Z20.822 Contact with and (suspected) exposure to COVID-19; M35.3 Polymyalgia rheumatica; K21.9 Gastro-esophageal reflux disease without esophagitis; E78.00 Pure hypercholesterolemia, unspecified; E03.9 Hypothyroidism, unspecified; F32.A Depression, unspecified; Z98.84 Bariatric surgery status; Z98.1 Arthrodesis status; Z79.01 Long term (current) use of anticoagulants; Z79.899 Other long term (current) drug therapy; E78.5 Hyperlipidemia, unspecified; S90.811A Abrasion, right foot, initial encounter; X58.XXXA Exposure to other specified factors, initial encounter; Y92.9 Unspecified place or not applicable; I70.223 Atherosclerosis of native arteries of extremities with rest pain, bilateral legs
CPT/HCPCS: 36415; 71045-TC; 75574; 80048-TC; 80053-TC; 80076-TC; 82962-TC; 83605-TC; 83735-TC; 83880; 84100-TC; 84443-TC; 84484-TC; 85025-TC; 87040-TC; 87081-TC; 93307-TC; 97112-TC; 97116-TC; 97530-TC; A4223; A4624; A6253; A6403; G0378; J0282; J1100; J2405; J2704; J3490; J7030; J7050; J7060; J7512; Q9967

== ENCOUNTER 2022-07-23 04:21 | Inpatient (IN) | payer MEDICARE, BC ==
[~2022-07-23] VITALS: Ht 170.2 cm; Wt 92.1 kg
[~2022-07-23 04:21] MED LIST: ACET325T53 PO; APIX5TAB PO; BIOT10006 PO; CALC1TAB3 PO; CARB15DR EACHEYE; CRAN250C PO; DOCU100C36 PO; DULO30CA2 PO; FAMO-131 PO; FAMO20TA80 PO; GABA300C PO; Hydrocodone/Apap 5/325MG PO; LEVO50TA PO; LEVO75TA7 PO; MAGN400O6 PO; MAGN400T26 PO; METO2.5T2 PO; NYST5ORA PO; ONDA4VIA23 PO; PRAM0.258 PO; PRED20TA PO; Prosource GT; SOTA80TA6 PO; VALS80TA31 PO; Z Guard Remedy TP
[2022-07-23] MEDS ORDERED: IV NS 0.9% 1,000 ML IV ONE (05:00)
--- NOTE | 2022-07-23 05:00 | NUR ---
Pt is noted alert, responsive as she was brought in from home C/O Generalized weakness and S/P slipped abd Fall from chair. Pt care continue with MD at bedside.
--- NOTE | 2022-07-23 05:15 | NUR ---
Urine sent to Lab. Pt care continue.
[2022-07-23 05:22] LABS: BASOPHILS # (AUTO) 0.1 K/uL (0.0-0.2); BASOPHILS % (AUTO) 0.5 % (0.0-2.0); EOSINOPHILS % (AUTO) 0.6 % (0.0-6.0); HEMATOCRIT 36 % (33-45); HEMOGLOBIN 11.4 g/dL (11.5-14.8); LYMPHOCYTES % (AUTO) 8.7 % (20.0-44.0); MEAN CORPUSCULAR HGB CONC 32 g/dl (31.0-36.0); MEAN CORPUSCULAR VOLUME 97 fL (82-100); MONOCYTES # (AUTO) 0.5 K/uL (0.1-1.30); MONOCYTES % (AUTO) 4.2 % (2.0-12.0); PLATELET COUNT (AUTO) 279 K/uL (150-450); RED BLOOD CELL COUNT(AUTO) 3.74 MIL/uL (4.0-5.2); WHITE BLOOD COUNT (AUTO) 11.6 K/uL (4.3-11.0)
--- NOTE | 2022-07-23 05:22 | NUR ---
LINE HAUL OWNER OPERATOR AT PT'S BEDSIDE
[2022-07-23 05:32] LABS: CALCIUM, SERUM 9.7 mg/dL (8.5-10.1); CARBON DIOXIDE 30 mmol/L (21-32); CHLORIDE 104 mmol/L (98-107); CREATININE 1.6 mg/dL (0.6-1.3); GLUCOSE 111 mg/dL (74-106); POTASSIUM 3.8 mmol/L (3.5-5.1); SODIUM SERUM 142 mmol/L (136-145); UREA NITROGEN, BLOOD 35 mg/dL (7-18)
[2022-07-23 05:42] LABS: MAGNESIUM 2.6 mg/dL (1.8-2.4)
--- NOTE | 2022-07-23 05:45 | NUR ---
COVID SWAB COLLECTED AND SENT TO LAB.
--- NOTE | 2022-07-23 05:45 | NUR ---
TROPONIN 292 REPORTED BY MIN BELLO. NOTIFIED. REPEAT EKG ORDERED.
[2022-07-23 06:29] LABS: BILIRUBIN,URINE NEGATIVE (NEGATIVE); COLOR,URINE YELLOW (YELLOW); LEUKOCYTE ESTERASE ,URINE NEGATIVE (NEGATIVE); NITRITE, URINE NEGATIVE (NEGATIVE); PROTEIN,URINE NEGATIVE (NEGATIVE); UGLUCOSE NEGATIVE (NEGATIVE); UROBILINOGEN,URINE 0.2 EU/dL (0.2)
[2022-07-23] MEDS ORDERED: VANCOMYCIN 1 GM in IV D5W 250 ML IV ONE (06:30)
[2022-07-23] MEDS ORDERED: PIPERACILLIN /TAZOBACTAM 3.375 G in IV D5W 50 ML IV ONE (06:30)
[2022-07-23] MEDS ORDERED: PIPERACILLIN /TAZOBACTAM 3.375 G VIAL IV ONE (06:41)
[2022-07-23] MEDS ORDERED: VANCOMYCIN 1 GM VIAL ONE (06:59)
--- NOTE | 2022-07-23 07:19 | NUR ---
Pt care continue asreport is given to the AM receciving nurse.
--- NOTE | 2022-07-23 07:26 | NUR ---
[facility] CALLED MANAGER RESPIRATORY CARE PAGED.
--- NOTE | 2022-07-23 07:30 | NUR ---
Patient in bed, sleeping. No signs of distress or discomfort. All safety precautions taken, will continue to monitor.
[2022-07-23 08:13] LABS: BILIRUBIN,DIRECT 0.2 mg/dL (0.0-0.2); BILIRUBIN,TOTAL 0.8 mg/dL (0.2-1.0)
[2022-07-23] MEDS ORDERED: MAGNESIUM HYDROXIDE 30 ML UDC PO PRN (10:00)
[2022-07-23] MEDS ORDERED: MAG HYDROX/AL HYDROX/SIMETH 30 ML UDC PO PRN (10:00)
[2022-07-23] MEDS ORDERED: ONDANSETRON HCL/PF 4 MG/2 ML VIAL IVP PRN (10:00)
[2022-07-23] MEDS ORDERED: Z GUARD REMEDY 4 OZ OINT TP PRN (10:00)
--- NOTE | 2022-07-23 10:22 | NUR ---
GOT ROOM 309-2 ADMITTING INFORMED.
--- NOTE | 2022-07-23 10:57 | NUR ---
REPORT GIVEN TO JULIANA FOR BERTHA
[2022-07-23] MEDS: IV 1/2NS 1000 ML 1,000 ML IV PRN (11:50)
[2022-07-23] MEDS ORDERED: MULT-447 PO (13:33)
[2022-07-23] MEDS ORDERED: OXYC-128 PO (13:33)
[2022-07-23] MEDS ORDERED: POLY17PO4 PO (13:33)
[2022-07-23] MEDS ORDERED: ACET-868 PO (13:33)
[2022-07-23] MEDS ORDERED: DULO30CA2 PO (13:33)
[2022-07-23] MEDS ORDERED: AMIN30LI2 PO (13:33)
[2022-07-23] MEDS ORDERED: ZINC50TA69 PO (13:33)
[2022-07-23] MEDS ORDERED: HYDR-4076 PO (13:33)
[2022-07-23] MEDS ORDERED: SOTA80TA PO (13:33)
[2022-07-23] MEDS ORDERED: CALC1TAB30 PO (13:33)
[2022-07-23] MEDS ORDERED: NA P133E RC (13:33)
[2022-07-23] MEDS ORDERED: DEXT30SU87 PO (13:33)
[2022-07-23] MEDS ORDERED: IPRA3AMP23 IH (13:33)
[2022-07-23] MEDS ORDERED: CRAN425C6 PO (13:33)
[2022-07-23] MEDS ORDERED: VALS80TA2 PO (13:33)
[2022-07-23] MEDS ORDERED: GABA-532 PO (13:33)
[2022-07-23] MEDS ORDERED: MAGN400O6 PO (13:33)
[2022-07-23] MEDS ORDERED: LEVO75TA7 PO (13:33)
[2022-07-23] MEDS ORDERED: SENN-261 PO (13:33)
[2022-07-23] MEDS ORDERED: ASCO-352 PO (13:33)
[2022-07-23] MEDS: HYDROCODONE/APAP 5/325MG TABLET PO PRN (14:10)
[2022-07-23 16:00] VITALS: BP 121/61
--- NOTE | 2022-07-23 16:50 | NUR ---
RN NOTE Received critical value from Marielena from lab at 1645, Troponin is 358. Dr. Khan notified, no new orders at this time.
--- NOTE | 2022-07-23 17:16 | NUR ---
Received patient from ER via gurney. Report given by EVAN Lopez. Patient is A/O x4, able to make needs known. Patient oriented to room and how to use the call light. Patient on room air, breathing evenly and unlabored. No SOB or s/s of distress noted. All belongings accounted for, patient unable to sign belonging sheet, 2 staff signed. IV access on Left hand #22, Right wrist #22, intact, patent. VS: BP: 121/61, HR: 80, RR: 21,Temp: 99.1, SPO2: 99%. Skin assessment done, multiple wound noted, wound picture taken placed in chart. Ed[place] noted on Left foot and Right knee +1 pitting. Lung sounds are clear to auscultation bilaterally without wheezes or crackles. Bowel sound present. Patient c/o pain on chest and lower extremeties. [place] PRN was given. Safety precaution in place, bed low, locked, siderails up x3, call light at reach. Will continue to monitor patient.
--- NOTE | 2022-07-23 19:19 | NUR ---
PHARMACEUTICAL SCIENTIST Closing Note Patient on bed, asleep, A/O x4, able to make needs known. Patient on room air, breathing evenly and unlabored. Denied pain/coldness. No SOB or s/s of distress noted. IV access on Left hand #22, Right wrist #22, intact, patent. VS WNR. Safety precaution in place, bed low, locked, siderails up x3, call light at reach. Will endorse to the next shift nurse to continue monitoring patient.
--- NOTE | 2022-07-23 19:19 | NUR ---
RN NOTE Unable to do orthostatics at this time, patient refusing to be moved from lying to sitting position and patient unable to stand up.
--- NOTE | 2022-07-23 19:30 | NUR ---
HYDROPULPER OPENING NOTES RECEIVED PATIENT AWAKE IN BED WITH CLOSED EYES. PATIENT RESPONSIVE TO VERBAL AND TACTILE STIMULI. NO PAIN NOTED AT THIS TIME. NO SOB NOTED. NO DISTRESS NOTED. ON TELE MONITOR READING SR. IV ACCESS ON THE LEFT HAND g # 22 AND RIGHT WRIST INTACT AD RUNNING 1/2 NS AT 75 ML/HR. ALL NEEDS ATTENDED. ALL SAFETY MEASURES IN PLACE. BED LOCKED IN THE LOWEST POSITION. CALL LIGHT AND TABLE IN EASY REACH. SIDE RAILS UP TIMES 2. WILL CONTINUE TO MONITOR CLOSELY.
[2022-07-23 20:03] VITALS: BP 100/56
[2022-07-23] MEDS: ACETAMINOPHEN 325 MG TABLET PO PRN (20:07)
--- NOTE | 2022-07-23 20:10 | NUR ---
RN NOTES NOTED WITH FEVER . T=102.3 PRN TYLENOL 650 MG PO GIVEN AT 2006. WILL ASSESS IN 1 HOUR. COOLING MEASURES ALSO PROVIDED.
[2022-07-24] VITALS (7 sets, daily range): BP systolic 90–135; BP diastolic 40–77
[2022-07-24] MEDS: HYDROCODONE/APAP 5/325MG TABLET PO PRN ×3 (00:13→23:19)
[2022-07-24] MEDS: IV 1/2NS 1000 ML 1,000 ML IV PRN ×2 (01:33→16:45)
[2022-07-24] MEDS: ACETAMINOPHEN 325 MG TABLET PO PRN (02:13)
--- NOTE | 2022-07-24 06:37 | NUR ---
CHILD CARE CENTRE MANAGER CLOSING NOTES PATIENT AWAKE IN BED WITH CLOSED EYES.PATIENT IS A/O TIMES 3. PATIENT RESPONSIVE TO VERBAL AND TACTILE STIMULI. NO PAIN NOTED AT THIS TIME. NO SOB NOTED. NO DISTRESS NOTED. ON TELE MONITOR READING SR75. IV ACCESS ON RIGHT WRIST INTACT AD RUNNING 1/2 NS AT 75 ML/HR. NO URINE OUTPUT NOTED DURING SHIFT. INFORMED PRODUCT MANAGER E [employer] [facility]. NEW ORDER FOR MCKAY CATHETER OBTAINED . 600 ML THE URINE OUTPUT RECORDED. ALL DUE MEDS GIVEN. NOTED WITH FEVER 2 TIMES DURING SHIFT 2 TIMES TYLENOL AND COOLING MEASURES GIVEN. ALL NEEDS ATTENDED. ALL SAFETY MEASURES IN PLACE. BED LOCKED IN THE LOWEST POSITION. CALL LIGHT AND TABLE IN EASY REACH. SIDE RAILS UP TIMES 2. WILL ENDORSE FOR BERTHA.
--- NOTE | 2022-07-24 07:20 | NUR ---
ASSISTANT WOMENS VOLLEYBALL COACH OPENING NOTES RECEIVED PATIENT IN BED; ASLEEP; EASY TO AROUSE. A/O X3. ON ROOM AIR, TOLERATING WELL. NO SOB NOTED, BREATHING EVEN ON TELE MONITOR READING SR; HR-85BPM. DENIES ANY PAIN AT THIS TIME. WITH IV ACCESS ON RIGHT WRIST, RUNNING 1/2 NS AT 75 ML/HR. WITH MCKAY CATHETER IN PLACE, DRAINING CLEAR YELLOW URINE VIA GRAVITY. SAFETY MEASURES PUT IN PLACE; BED IN LOW AND LOCKED POSITION; SIDE RAILS UP X2; CALL LIGHT AND TABLE WITHIN EASY REACH. WILL CONTINUE WITH PLAN OF CARE.
[2022-07-24 07:31] LABS: BASOPHILS % (AUTO) 0.2 % (0.0-2.0); EOSINOPHILS % (AUTO) 0.6 % (0.0-6.0); HEMATOCRIT 28 % (33-45); HEMOGLOBIN 9.2 g/dL (11.5-14.8); LYMPHOCYTES # (AUTO) 0.7 K/uL (0.8-4.8); LYMPHOCYTES % (AUTO) 7.9 % (20.0-44.0); MEAN CORPUSCULAR HGB CONC 33 g/dl (31.0-36.0); MEAN CORPUSCULAR VOLUME 96 fL (82-100); MONOCYTES # (AUTO) 0.5 K/uL (0.1-1.30); NEUTROPHILS # (AUTO) 7.8 K/uL (1.8-8.9); NEUTROPHILS % (AUTO) 86.3 % (43.0-81.0); PLATELET COUNT (AUTO) 193 K/uL (150-450); RED BLOOD CELL COUNT(AUTO) 2.92 MIL/uL (4.0-5.2)
[2022-07-24 07:49] LABS: ALANINE AMINOTRANSFERASE 21 U/L (12-78); ALBUMIN 2.1 g/dL (3.4-5.0); ALKALINE PHOSPHATASE 73 U/L (46-116); ASPARTATE AMINOTRANSFERASE 18 U/L (15-37); BILIRUBIN,TOTAL 1.1 mg/dL (0.2-1.0); CALCIUM, SERUM 8.4 mg/dL (8.5-10.1); CARBON DIOXIDE 24 mmol/L (21-32); CHLORIDE 105 mmol/L (98-107); CREATININE 1.1 mg/dL (0.6-1.3); GLUCOSE 105 mg/dL (74-106); MAGNESIUM 2.4 mg/dL (1.8-2.4); PHOSPHORUS 3.3 mg/dL (2.5-4.9); POTASSIUM 3.2 mmol/L (3.5-5.1); SODIUM SERUM 139 mmol/L (136-145); TOTAL PROTEIN, SERUM 5.2 g/dL (6.4-8.2); UREA NITROGEN, BLOOD 28 mg/dL (7-18)
--- NOTE | 2022-07-24 08:29 | NUR ---
WOUND CARE CONSULT: PT PRESENTS WITH MULTIPLE PRESSURE ULCERS AND AREAS OF SKIN DISCOLORATION, PRESENT ON ADMISSION INCLUDING BILATERAL HEEL DEEP TISSUE INJURIES, LARGE RAISED BLISTER/DISCOLORED AREA TO LEFT LOWER LEG, LEFT ELBOW SKIN TEAR WITH LARGE DISCOLORED AREA TO PERIWOUND, LEFT HIP INTACT DEEP TISSUE INJURY AND MULTIPLE DRY WOUNDS TO FEET, ALL PRESENT ON ADMISSION. DR CUEVAS CALLED FOR DPM CONSULT. DISCUSSED SKIN PROTECTION AND WOUND CARE RECOMMENDATIONS WITH NURSING STAFF. IN AGREEMENT WITH PLAN OF CARE. NELY VIDALES NOTED. [facility] B[facility]. Addendum: 07/24/22 at 0834 by SUNG GAGNON WNDNU Amended: Links added.
[2022-07-24] MEDS ORDERED: HYDROGEL DRESSING 90 GM TUBE TP PRN (08:30)
[2022-07-24] MEDS ORDERED: POTASSIUM CHLORIDE 20 MEQ POWDER PACKET PO ONE ×2 (09:00→12:30)
--- NOTE | 2022-07-24 10:30 | NUR ---
LEADERSHIP INTERN PATIENT CONSENTED TO DO CT ANGIOGRAM. PATIENT WAS UNABLE TO SIGN; 2 NURSES(WITNESSES) SIGNED ON HER BEHALF. CONSENT ATTACHED TO CHART.
[2022-07-24] MEDS: DULOXETINE HCL 30 MG CAPSULE.DR PO SCH (11:05)
[2022-07-24] MEDS: predniSONE 20 MG TABLET PO SCH (11:05)
[2022-07-24] MEDS: FAMOTIDINE (20 MG) 20 MG TABLET PO SCH ×2 (11:06→16:44)
[2022-07-24] MEDS: GABAPENTIN 100 MG CAPSULE PO SCH ×4 (11:06→20:42)
[2022-07-24] MEDS: LEVOTHYROXINE SODIUM 75 MCG TABLET PO SCH (11:06)
[2022-07-24] MEDS: CEFTRIAXONE 1 G in IV D5W 50 ML IV SCH (11:07)
[2022-07-24] MEDS: SOTALOL HCL 80 MG TABLET PO SCH ×2 (11:11→20:41)
--- NOTE | 2022-07-24 11:15 | NUR ---
VIDEO TAPE EDITOR NOTE PATIENT UNABLE TO PARTICIPATE IN PHYSICAL THERAPY DUE TO PAIN. UNABLE TO DO EVEN SITTING POSITION BECAUSE OF PAIN DESPITE TAKING NORCO 2 HOURS AGO. COMFORT MEASURES PROVIDED.
--- NOTE | 2022-07-24 11:28 | NUR ---
MOLD MAKING SUPERVISOR NOTE PATIENT COMPLAINED OF GENERALIZED PAIN BUT MORE INTENSE ON BLE. PATIENT WAS GIVEN NORCO EARLIER WITH NO RELIEF. OTHER MEDICATIONS GIVEN LIKE GABAPENTIN AND PREDNISONE 30 MG. STILL COMPLAINED OF PAIN. MD NOTIFIED OF PATIENT'S COMPLAIN OF PAIN DESPITE MEDICATIONS. NO NEW ORDER AT THIS TIME. PROVIDED WITH CALM AND QUIET ENVIRONMENT. WILL CONTINUE TO WITH PLAN OF CARE.
[2022-07-24] MEDS: HYDROGEL DRESSING 90 GM TUBE TP SCH (12:08)
[2022-07-24] MEDS: VANCOMYCIN 1.25 GM in IV D5W 250 ML IV SCH (12:22)
--- NOTE | 2022-07-24 14:56 | NUR ---
GLASS DRILLER PATIENT REFUSED TO CONSENT FOR WOUND DEBRIDEMENT. WILL TRY TO ASK THE PATIENT AGAIN LATER.
--- NOTE | 2022-07-24 16:30 | NUR ---
BOAT RIGGER NOTE PATIENT UNABLE TO FOLLOW COMMANDS FOR CTA ORDERED. CHARGE NURSE AND DR. BRYANT NOTIFIED.
--- NOTE | 2022-07-24 16:30 | NUR ---
GYM ATTENDANT PATIENT REFUSED TO CONSENT FOR WOUND DEBRIDEMENT. AWARE.
[2022-07-24] MEDS: ENSURE ENLIVE 237 ML LIQUID (VANILLA) PO SCH (16:44)
[2022-07-24] MEDS: PROSOURCE / PROSTAT (PYXIS) 30 ML UDC PO SCH (17:00)
--- NOTE | 2022-07-24 17:16 | NUR ---
ROLL UP GUIDER OPERATOR NOTE REFUSED DVT PUMP ON THE LEFT LEG, RIGHT LEG BLISTER RUPTURED AND TREATMENT DONE.
--- NOTE | 2022-07-24 19:05 | NUR ---
PHARMACEUTICAL DETAILER CLOSING NOTES PATIENT IN BED; ASLEEP; EASY TO AROUSE. A/O X3. ON ROOM AIR, TOLERATED WELL. NO SOB NOTED, BREATHING EVEN ON TELE MONITOR READING SR; HR-80BPM. DENIES ANY PAIN AT THIS TIME. WITH IV ACCESS ON RIGHT WRIST, RUNNING 1/2 NS AT 75 ML/HR. WITH MCKAY CATHETER IN PLACE, DRAINING CLEAR YELLOW URINE VIA GRAVITY-600ML. ALL DUE MEDS GIVEN. ALL NURSING NEEDS ATTENDED. SAFETY MEASURES IN PLACED; BED IN LOW AND LOCKED POSITION; CALL LIGHT AND TABLE WITHIN EASY REACH. WILL ENDORSE TO TAVERN KEEPER NURSE FOR CONTINUITY OF CARE.
--- NOTE | 2022-07-24 19:30 | NUR ---
PRECISION AGRICULTURE TECHNICIAN NOTES RECEIVED LYING ON BED SLEEPING,AROUSABLE TO VERBAL STIMULI,A/O X3,BREATHING REGULAR,NOT IN ANY FORM OF DISTRESS,PRESENT IVF 1/2 NS AT 75ML/HR RATE INFUSING ON RIGHT WRIST VIA IV PUMP,SITE PATENT.WITH MCKAY CATH IN PLACE DRAINS YELLOWISH OUTPUT,DRESSING INTACT AND DRY ON,RIGHT HEEL,BILATERAL LEGS.WILL CONTINUE TO MONITOR STATUS.CALL LIGHT IN REACH,NEEDS ANTICIPATED.
--- NOTE | 2022-07-24 21:00 | NUR ---
AUTOMOTIVE PARTS COUNTERPERSON NOTES DUE PO MEDS GIVEN, TAKEN WELL. NEGATIVE FOR ASPIRATION
[2022-07-24] MEDS: PRAMIPEXOLE DI-HCL 0.25 MG TABLET PO SCH (21:08)
--- NOTE | 2022-07-24 23:19 | NUR ---
PRACTICE COORDINATOR NOTES PAIN MANAGEMENT C/O PAIN 5/10 ON PAIN SCALE ON RIGHT HEEL,RIGHT HIP.MEDICATED WITH NORCO 5/325MG,1 TAB PO ORDERED.WILL MONITOR FOR RELIEF
[2022-07-25] VITALS (7 sets, daily range): BP systolic 115–143; BP diastolic 54–70
--- NOTE | 2022-07-25 01:40 | NUR ---
PINBALL MACHINE REPAIRER NOTES ADELITA ONOFRE AT BEDSIDE TO INSERT MIDLINE WITH ORDERS.PATIENT HARD TO STICK
--- NOTE | 2022-07-25 02:00 | NUR ---
OYSTER TONGER NOTES MIDLINE INSERTED BY PICC LINER ADELITA ON RIGHT UPPER ARM #18,PRESENT IVF RE STARTED.
[2022-07-25] MEDS: HYDROCODONE/APAP 5/325MG TABLET PO PRN ×2 (05:44→23:30)
--- NOTE | 2022-07-25 05:44 | NUR ---
MS RN NOTES PAIN MANAGEMENT AWAKE,IN PAIN 6/10 ON PAIN SCALE,NORCO 5/325MG,1 TAB PO GIVEN ORDERED FOR MODERATE PAIN.WILL MONITOR FOR RELIEF.
[2022-07-25 06:25] LABS: BASOPHILS % (AUTO) 0.2 % (0.0-2.0); EOSINOPHILS % (AUTO) 0.2 % (0.0-6.0); HEMATOCRIT 27 % (33-45); HEMOGLOBIN 8.9 g/dL (11.5-14.8); LYMPHOCYTES # (AUTO) 0.5 K/uL (0.8-4.8); LYMPHOCYTES % (AUTO) 5.3 % (20.0-44.0); MEAN CORPUSCULAR HGB CONC 33 g/dl (31.0-36.0); MEAN CORPUSCULAR VOLUME 94 fL (82-100); MONOCYTES # (AUTO) 0.5 K/uL (0.1-1.30); NEUTROPHILS # (AUTO) 8.1 K/uL (1.8-8.9); NEUTROPHILS % (AUTO) 89.3 % (43.0-81.0); PLATELET COUNT (AUTO) 192 K/uL (150-450); RED BLOOD CELL COUNT(AUTO) 2.83 MIL/uL (4.0-5.2); WHITE BLOOD COUNT (AUTO) 9.1 K/uL (4.3-11.0)
--- NOTE | 2022-07-25 06:57 | NUR ---
BITUMASTIC APPLIER NOTES LYING ON BED,SLEEPING WITH PAIN MANAGEMENT,AROUSABLE TO VERBAL STIMULI,IVF INFUSING WELL ON RIGHT UPPER ARM MIDLINE.REPOSITION PER PROTOCOL,FOR CT ANGIOGRAM TODAY,CONSENT ON CHART.STOOL SPECIMEN STILL NEEDED,NO LOOSE,WATERY ON ANALYSIS MGR.UNABLE TO CHECK ORTHOSTATIC,PATIENT UNABLE TO SIT ANG STAND.LYING ONLY DOCUMENTED ON CHART.WILL ENDORSE TO DAY NURSE FOR BERTHA.
[2022-07-25 07:04] LABS: ALBUMIN 1.9 g/dL (3.4-5.0); BILIRUBIN,TOTAL 0.7 mg/dL (0.2-1.0); CALCIUM, SERUM 8.5 mg/dL (8.5-10.1); CREATININE 0.8 mg/dL (0.6-1.3); MAGNESIUM 2.3 mg/dL (1.8-2.4); POTASSIUM 3.3 mmol/L (3.5-5.1); TOTAL PROTEIN, SERUM 5.3 g/dL (6.4-8.2)
--- NOTE | 2022-07-25 07:30 | NUR ---
RN MS NOTES PT IN BED, ASLEEP, EASY TO AROUSE, NO SIGN OF PAIN OR DISTRESS, RESPIRATIONS NORMAL, CALL LIGHT WITHIN REACH, IV FLUIDS INFUSING WELL, SAFETY PRECAUTIONS OBSERVED, KEPT WARM AND COMFORTABLE IN BED.
[2022-07-25] MEDS: LEVOTHYROXINE SODIUM 75 MCG TABLET PO SCH (07:42)
[2022-07-25] MEDS: PROSOURCE / PROSTAT (PYXIS) 30 ML UDC PO SCH ×3 (08:00→16:50)
[2022-07-25] MEDS: GABAPENTIN 100 MG CAPSULE PO SCH ×4 (08:27→21:27)
[2022-07-25] MEDS: predniSONE 20 MG TABLET PO SCH (08:27)
[2022-07-25] MEDS: FAMOTIDINE (20 MG) 20 MG TABLET PO SCH ×2 (08:27→17:25)
[2022-07-25] MEDS: SOTALOL HCL 80 MG TABLET PO SCH ×2 (08:27→21:27)
[2022-07-25] MEDS: HYDROGEL DRESSING 90 GM TUBE TP SCH (08:28)
[2022-07-25] MEDS: DULOXETINE HCL 30 MG CAPSULE.DR PO SCH ×2 (08:28→08:32)
[2022-07-25] MEDS: ENSURE ENLIVE 237 ML LIQUID (VANILLA) PO SCH ×3 (08:28→16:50)
--- NOTE | 2022-07-25 08:32 | NUR ---
PRINT CONTROLLER NOTES PT SEEN AND EXAMINED BY DR. HUDDLESTON, PT'S JUAN MIGUEL CALLED, REQUESTED TO SPEAK WITH MD MICAELA AWARE.
[2022-07-25] MEDS: VALSARTAN 80 MG TABLET PO SCH (09:06)
[2022-07-25] MEDS: POTASSIUM CHLORIDE 20 MEQ TAB.PRT.SR PO SCH ×3 (09:06→11:52)
[2022-07-25] MEDS: IV 1/2NS 1000 ML 1,000 ML IV PRN (09:12)
[2022-07-25] MEDS: CEFTRIAXONE 1 G in IV D5W 50 ML IV SCH (09:12)
--- NOTE | 2022-07-25 10:33 | NUR ---
SS NOTE: Per CM, the pt. is concerned of her , Jose Steen's well being as she usually cares for him. Pt. states a neighbor usually cares for the pt. for about 4-5 hrs. daily but wants to make sure he is okay. DYAN called [employer] tel: [phone] chlorine plant operator #[phone] about possible wellness check. DYAN received call from [employer] that they have been able to reach Jose over the phone and that he stated is well and their neighbor has been helping care for him.
[2022-07-25] MEDS: VANCOMYCIN 1.25 GM in IV D5W 250 ML IV SCH (11:02)
--- NOTE | 2022-07-25 18:13 | NUR ---
TRANSIT SURVEY WORKER NOTES PT IN BED, AWAKE, ALERT AND ORIENTED, DENIES PAIN, NOT IN DISTRESS, CALL LIGHT WITHIN REACH, IV FLUIDS INFUSING WELL, PM CARE PROVIDED, WOUND CARE AND DRESSING CHANGE DONE, REPOSITIONED FOR COMFORT, PM MEDS GIVEN ORDERED, ASSISTED WITH MEALS, ALL NEEDS ATTENDED.
--- NOTE | 2022-07-25 19:30 | NUR ---
canadian bacon tier Opening Note Received patient in bed; awake, alert and oriented x 3. On room air; tolerating well saturating at 96%. Breathing evenly and unlabored. Not in any form of respiratory or cardiac distress. Denies any pain or discomfort. On telemetry monitoring which reads sinus rhythm hr-74 bpm. With IV access on right upper arm midline 18g; patent and intact running with 0.45% 1L regulated @ 75 ml/hr; flushing well. With stein catheter in place; patent and intact draining by gravity to clear yellow urine output. Able to verbalize needs. Fall and safety measures implemented: call light and table within reach, side rails up x 3, bed in lowest locked position. Will continue to monitor throughout shift.
[2022-07-25] MEDS: PRAMIPEXOLE DI-HCL 0.25 MG TABLET PO SCH (21:27)
--- NOTE | 2022-07-25 23:30 | NUR ---
RN Note Patient complained of pain on bilateral legs 6/10 pain scale. PRN [place] 5/325mg 1 tab given po as ordered. Kept comfortable in bed. Will continue to monitor and reassess patient.
[2022-07-26] VITALS: BP 149/76
[2022-07-26 00:03] VITALS: BP 149/76
[2022-07-26] MEDS: IV 1/2NS 1000 ML 1,000 ML IV PRN (02:51)
[2022-07-26 04:00] VITALS: BP 150/72
[2022-07-26 04:19] VITALS: BP 150/72
[2022-07-26 06:34] LABS: CALCIUM, SERUM 8.7 mg/dL (8.5-10.1); CREATININE 0.9 mg/dL (0.6-1.3); POTASSIUM 3.6 mmol/L (3.5-5.1)
--- NOTE | 2022-07-26 06:45 | NUR ---
spa assistant manager Closing Note Patient in bed; awake, a/o x 3. Stable on room air. Not in any form of respiratory or cardiac distress. No c/o pain or discomfort. On telemetry monitoring which reads sinus rhythm hr-62 bpm. With IV access on right upper arm midline 18g; intact and patent running with 0.45% 1L regulated @ 75 ml/hr; flushes well. With stein cath in place draining by gravity to clear yellow urine output. All needs attended. All due meds given as ordered. Fall and safety precautions maintained: call light and table within reach, side rails up x 3, bed in lowest locked position. Endorsed to morning shift for continuity of care.
--- NOTE | 2022-07-26 07:25 | NUR ---
BUNG SEWER OPENING NOTES RECEIVED PATIENT ON BED , A/OX3 , AND VERBALLY RESPONSIVE , ON ROOM AIR WITH NO SOB OR DISTRESS NOTED , NO C/ O OF PAIN AND DISCOMFORT, IV ACCESS ON THE ISABEL ML G 18 WITH 0.45% NS @75 M /H , HOB AT TIMES , SAFETY MEASURES PROVIDED , CALL LIGHT WITHIN REACH , SR UP X2 AND WILL MONITOR PATIENT FOR ANY CHANGES .
[2022-07-26] MEDS: LEVOTHYROXINE SODIUM 75 MCG TABLET PO SCH (08:31)
[2022-07-26] MEDS: PROSOURCE / PROSTAT (PYXIS) 30 ML UDC PO SCH ×2 (08:31→12:01)
[2022-07-26] MEDS: ENSURE ENLIVE 237 ML LIQUID (VANILLA) PO SCH ×2 (08:31→12:02)
--- NOTE | 2022-07-26 08:33 | NUR ---
SS consult: SS Consult requested for safe discharge planning. The pt. is 81-year-old female admitted to Med Surg for Generalized weakness. SW met with pt. at bedside. The pt. is alert & oriented x 3 and makes some eye contact. The pt. appears well-groomed. The pt. has depressed mood & flat affect. Per pt. she resides at home [[id number] [facility] [address]] with her , Jose Steen tel: [phone] who is partially blind. Pt. Denies any history mental illness. SW provided pt. with senior resources including for transportation, meal delivery, DME, insurance assistance etc. Pt. was receptive and stated he will use resources as needed. Per pt. she used to be ambulatory and independent with all his ADLs at home but since the incident where she slipped at home she hasnt been mobile. Per pt. her is partially blind and they have hired a caregiver who comes in 4 hrs. daily. Per pt., she states she feels confident her will be safe and he is able to cook and take care of most things alone. DC Plan: Pt. is agreeable to go to SNF short term before she returns home [[address] [facility] [address]]. DYAN provided pt. with the follow senior resources and pt. accepted them: ABUSE PREVENTION: ELDER ABUSE HOTLINE (14/10) ADULT PROTECTIVE SERVICES HOTLINE LONG-TERM CARE [facility] Region AREA ON AGING (HOTLINE) ADULT DAY HEALTH CARE CARE CENTERS: Private pay or [facility] funded adult day care [facility] , [facility] Services , [facility] , [facility] Adult Day Health Care , [facility] Adult [facility] Care , [facility] Adult [facility] , [facility] , Anival Tapiaashley [facility] , [place] ALZHEIMERS DISEASE/DEMENTIA: Alzheimers Association Helpline [facility] Chapter www.alz.org/[facility] Department of Aging www.lacity.org Family Caregiver [place] www.caregiver.org [place] Caregiver Resources Center/Family Support www.[facility].org CANCER RESOURCES: Citizen Of [place] Cancer Society www.cancer.org Cancer Support Community www.CancerSupportVvsb.org: CancerCare www.cancercare.org [facility] Cancer Support Center www.[facility].org [facility] HEALTH ASSOCIATIONS: AARP www.aarp.org ALS Association (ask for Abby) www.als.org Citizen Of [place] Diabetes Association www.diabetes.org Citizen [place] Heart Association www.heart.org Citizen [place] Lung Association www.lungusa.org Citizen Of [place] Parkinson Disease Association www.apdaparkinson.org Citizen Of [place] , www.redcross.org Arthritis Foundation www.arthritis.org Crohns & Colitis Foundation of Citizen Of [place] www.ccfa.org/chapters/cora National Multiple Sclerosis Society www.nationalmssociety.org Myasthenia Gravis Foundation www.myasthenia-ca.org National Stroke Association www.stroke.org CONSERVATORSHIP & GUARDIANSHIP: AARP Hortencia Sheppard Legal Services Center for Health Care Rights Eldercare Information and Referral Flight Surveyor Foundation [facility]: [facility] Bar Referral Service [facility] Legal Services Office of the Public Guardian Shushan EYESIGHT DISORDER RESOURCES: Citizen Of [place] Macular Degeneration Foundation [facility] www.[facility].org GRIEF AND BEREAVEMENT RESOURCES: The [place] , [facility] THE HOPE Connection , [facility] , [place] HEARING DISORDER RESOURCES: [place] Telephone Access Program Deaf and Disabled Telecommunications Program www.ddtp.[facility].ca.gov HearRx Hearing Centers (Allgood) Better Hearing Systems , [place] GLAD ([facility] Agency on Deafness) V/ TTY; Python Architect , [facility] Hearing [facility], [place] -low income hearing aid assistance www.onefortytallahassee memorial healthcarefoundation.org [facility] , Anabelle HELP AT HOME CAREGIVER SUPPORT: In Home Support Services (Must have Medi-Kishor to be eligible) *Ask for a list of agencies that provide services to assist with care in the home. Local Senior Centers also have listings of care providers. HOME SAFETY MODIFICATIONS AND EQUIPMENT: Senior centers have additional referrals. [place] Housing and Community Investment Dept. Handyworker Program (low income) or Visit http://hcidla.[facility].org/pve-mvedzq-gl for more information National Seating and Mobility and/or ; Forever Active www.foreveractivemed.Glocal Stay Home Safe www.Stayhomesafe.com LIFE ALERT RESPONSE SYSTEM: LibertadCard Services 488-377-4289 www. Mostro Life Alert 198-193-7495 www.DuraSweeper.Glocal Life Station 591-825-3459 www.Metronom Healthation.Glocal Safe Return 030-745-8802 www.alz.or/safereturn Cell Phones for Seniors www.[employer] Fuel Solutions MEALS AND FOOD PROGRAMS: [place] Meals on Wheels [phone] [place] Meals on Wheels [phone] [facility] 710-029-6722 [place] to the Homebound [phone] [place] to the Homebound [phone] [facility] to the Homebound [phone] [facility] to the Homebound [phone] [facility] CenterAnival [phone] [facility] [phone] ONE Generation [phone] [facility] [phone] Critical [facility] Hospital [phone] Meals on Wheels [phone] For all ages: $6.85/ meal w side. Delivered M-F from 10 am-1pm. Application and payment is done over the phone. Frozen meals available for weekends. Emergency Food [facility] [phone] [facility] Print Shop Stenographer [phone] [facility] [phone] [facility] Brown bag lunches [phone] [facility] [phone] MEAL/GROCERY DELIVERY PROGRAMS: [facility] Gourmet Meals [phone]- [facility] [phone]- [facility] Magic Kitchen [phone] Moms Meals [phone] (ask Stephens for Discount Select grocery stores may provide delivery. MEDICAL INSURANCE SUPPORT SERVICES: Center for Health Care Rights 522-990-8928 Health Insurance Counseling/Advocacy Programs (HICAP)-Must have Medicare. Offers counseling for Medi-Kishor eligibility 337-228-8077 Department of Public Print Shop Stenographer 711-873-6597 www.[facility].ca.gov Medicare 785-142-3350 www.socialsecurity.org Social Security 988-042-6168 SENIOR ACTIVITY PROGRAMS: *Contact a local senior center, adult school, recreation facility or community college for education, fitness, recreation, and social programs. Aquatic Therapy and Adapted Exercise programs through [facility] [phone] Encore at [facility] [phone] www.[facility]/encore U- Senior Friends [phone] [place] Senior Programs 671-284-4220 www.oasisnet.org Suddenly 65 www.eGistics.Glocal SENIOR CENTERS: [facility] [phone] [facility] [phone] [facility] [phone] [facility] [phone] [facility] [phone] [facility] [phone] [facility] [phone] [facility] [phone] [facility] [phone] [facility] [phone] [facility] [phone] [facility] [phone] TRANSPORTATION: Local [facility] may have applications for transportation programs and additional resources. ACCESS Services [phone] Transportation for seniors and disabled persons 7 days a week requiring 254 hr. advance reservation. Must apply and register for program jennifer eligible. [employer] [phone] or [phone] Transportation for seniors and persons with ADA card/metro disabled card in the [facility]. M-F only. Must register for services. ONE GENERATION [phone] Serves 65 years + in conjunction with city ride program. Must be registered with both programs. A to B Transport [phone] Provides wheelchair/gurney van service. Adult Medical Transport [phone] Accepts [facility] with prior authorization. Care Van [phone] Provides wheelchair Transport. [facility] Wide Transportation [phone] Provides gurney service Gentle Care [phone] Gurney Transport. [facility] Town Transportation [phone] wheelchair & gurney transport D Transportation [phone] wheelchair & gurney transport [place] Non-Emergency Transport [phone] wheelchair & gurney transport [facility] Center [phone] Short Term Transportation primarily for adults with disabilities on social security income. Nominal fee may apply and a reservation is required. [facility] Cab [phone] or [phone] [facility] [phone] [place] [address] Services -[phone] For additional programs & services VETERANS RESOURCES: Submissions for Aid and Attendance should be done directly to Federal VA office locatd at : [address] [facility] [phone] National Caregiver Support Line [phone] [facility] Veterans Services Field Office [phone] [place] Department of Affairs [phone] Pension Information [phone]
[2022-07-26] MEDS: predniSONE 20 MG TABLET PO SCH (09:34)
[2022-07-26] MEDS: GABAPENTIN 100 MG CAPSULE PO SCH ×2 (09:34→13:21)
[2022-07-26] MEDS: DULOXETINE HCL 30 MG CAPSULE.DR PO SCH (09:35)
[2022-07-26] MEDS: SOTALOL HCL 80 MG TABLET PO SCH (09:35)
[2022-07-26] MEDS: VALSARTAN 80 MG TABLET PO SCH (09:35)
[2022-07-26] MEDS: FAMOTIDINE (20 MG) 20 MG TABLET PO SCH (09:36)
[2022-07-26] MEDS: CEFTRIAXONE 1 G in IV D5W 50 ML IV SCH (11:05)
[2022-07-26] MEDS: VANCOMYCIN 1.25 GM in IV D5W 250 ML IV SCH (11:48)
[2022-07-26 12:00] VITALS: BP 159/78
[2022-07-26] MEDS ORDERED: LIDOCAINE 1%-EPI 1:100,000 20 ML VIAL TP ONE (13:00)
[2022-07-26] MEDS ORDERED: SILVER NITRATE APPLICATOR 1 EA BOX TP SCH (13:00)
[2022-07-26] MEDS ORDERED: THERAHONEY GEL 1.5 OZ TUBE TP SCH (13:00)
--- NOTE | 2022-07-26 14:45 | NUR ---
TRUCKER HANDAMUSEMENT MACHINE MECHANIC NOTES PATIENT ON BED , A/OX3 , AND VERBALLY RESPONSIVE , ON ROOM AIR WITH NO SOB OR DISTRESS NOTED , NO C/ O OF PAIN AND DISCOMFORT, ALL DUE MEDS GIVEN ORDERED , PATIENT WAS SEEN BY DR ROCHA AND WITH ORDER FOR DISCHARGE TO THE FACILITY AT [facility] , DISCHARGE PAPERS PREPARED AND INSTRUCTIONS PROVIDED TO THE PATIENT AND REQUESTED TO HAVE A REGULAR DIET , AND TO THE RN IN FACILITY TO REJI , ALL BELONGINGS WERE TAKEN AND FOR WAS SIGNED , BODY ASSESSMENT AND PHOTOS OFFERED OFFERED AND PATIENT REFUSED , REPORT WAS GIVEN TO THE EMT AND PATIENT LEFT WITH NOC/O OF PAIN AND DISCOMFORT AND IN A STABLE CONDITION IV ACCES AND CRIMINAL JUSTICE SOCIAL WORKER REMOVED AND ID BADGE REMOVED , LEFT VIA GURNEY WITH EMT ,
== END 2022-07-26 14:45 | DRG 682 ==
LOC: ER 04:22 → TELE 10:25
PROVIDERS: ADMIT Internal Medicine; ATTEND Internal Medicine
PROC: 05H933Z Insertion of Infusion Device into Right Brachial Vein, Percutaneous Approach (ICD-10-PCS; principal; 2022-07-25)
DX: N17.0 Acute kidney failure with tubular necrosis (principal); I21.A1 Myocardial infarction type 2; D68.59 Other primary thrombophilia; I50.32 Chronic diastolic (congestive) heart failure; J98.11 Atelectasis; L03.115 Cellulitis of right lower limb; L97.329 Non-pressure chronic ulcer of left ankle with unspecified severity; E86.0 Dehydration; I11.0 Hypertensive heart disease with heart failure; L89.526 Pressure-induced deep tissue damage of left ankle; L97.519 Non-pressure chronic ulcer of other part of right foot with unspecified severity; Z20.822 Contact with and (suspected) exposure to COVID-19; Z98.84 Bariatric surgery status; Z98.890 Other specified postprocedural states; G62.9 Polyneuropathy, unspecified; Z79.01 Long term (current) use of anticoagulants; Z79.899 Other long term (current) drug therapy; I48.91 Unspecified atrial fibrillation; I25.10 Atherosclerotic heart disease of native coronary artery without angina pectoris; E03.9 Hypothyroidism, unspecified; F32.A Depression, unspecified; M35.3 Polymyalgia rheumatica; I70.25 Atherosclerosis of native arteries of other extremities with ulceration; I70.233 Atherosclerosis of native arteries of right leg with ulceration of ankle; I70.243 Atherosclerosis of native arteries of left leg with ulceration of ankle; S80.822A Blister (nonthermal), left lower leg, initial encounter; X58.XXXA Exposure to other specified factors, initial encounter; Y92.9 Unspecified place or not applicable; W07.XXXA Fall from chair, initial encounter; Y92.009 Unspecified place in unspecified non-institutional (private) residence as the place of occurrence of the external cause
CPT/HCPCS: 36415; 71045-TC; 73501; 80048-TC; 80053-TC; 80202-TC; 82247-TC; 82248-TC; 83605-TC; 83735-TC; 83880; 84100-TC; 84484-TC; 85025-TC; 87040-TC; 87081-TC; 97110-TC; 97530-TC; A4223; A6248; A6253; C9803; G0378; J0696; J2543; J3370; J3490; J7030; J7060